=== PATIENT | female | born 1950 | race Caucasian/White ===

== ENCOUNTER 2016-07-17 23:54 | Emergency (ER) | payer MEDICARE, OTHER ==
[~2016-07-17] VITALS: Ht 157.5 cm; Wt 87.3 kg
[~2016-07-17 23:54] MED LIST: ALPRAZOLAM0.5 MG PO; BUPR-97 PO; CITA20TA PO; GLUC-125 PO; METO25T PO; [UNRECOGNIZED DRUG - CODE] PO
[2016-07-18 00:05] VITALS: BP 147/91; RESP 18; O2SAT 94
--- NOTE | 2016-07-18 00:57 | ED.REPORT ---
HPI-Facial Injury Date of Service Jul 18, 2016 ED Provider: Walt Schumacher MD Patient is a 65 year old female who presents to the ED with a nasal laceration after a ground level fall this evening. The patient states that she slipped and fell onto her face. Patient admits to drinking wine this evening, as her mother- in-law today. She is not on any blood thinning medications and bleeding is well controlled on arrival to the ED. Patient denies loss of consciousness, neck pain, or sustaining any other injuries. Nursing Notes Stated Complaint: NOSE BLEED Chief Complaint: ENT & Mouth Nursing Notes Reviewed: Yes Allergies: Coded Allergies: propoxyphene HCl (Verified Allergy, Unknown, 07/18/16) Scheduled Alprazolam-Expunged Drug, Do Not Renew! (Alprazolam-Expunged Drug, Do Not Renew! ) 0.5 Mg Tablet 0.5 MG PO PRN Bupropion-Expunged Drug, Do Not Renew! (Bupropion XL-Expunged Drug, Do Not Renew !) 150 Mg Tab.sr.24h 150 MG PO DAILY Citalopram-Expunged Drug, Do Not Renew! (Citalopram-Expunged Drug, Do Not Renew! ) 20 Mg Tablet 20 MG PO DAILY Metoprolol Tart-Expunged Drug, Do Not Renew! (Metoprolol Tart-Expunged Drug, Do Not Renew!) 25 Mg Tablet 25 MG PO BID Miscellaneous Medications Calcium Citrate/Vitamin D3 ([facility] Calcium Citrate +Vit D3 Tb) 1 Each Tablet 1 EACH PO Gluc/Zenon-Msm#3/Niranjan/Bosw/Bor (Glucosamine Chondroitin Sftgl) 1 Each Capsule EACH PO General Time Seen by Provider: 01:00 Chief Complaint Other (nasal laceration) Hx Obtained From: Patient Arrived By: Walk-in Onset Occurred: Just prior to arrival Symptom Duration: Since onset Caused by: Fall Context: Occurred at: Home Location: : Nose Quality: Painful Severity: Current: Mild Severity: Maximum: Moderate Recent Healthcare: No recent doctor visit, No recent hospitalization Similar Sx Previous: No Past Medical History Past Medical History arthritis duodenal ulcer Reports: Hypertension Reports: Depression Past Surgical History hand surgery Smoking History Current Every Day Smoker Social History Alcohol Use: 1-3 per day Other Social History: Good social support, Local resident Ambulatory Status Independent Review of Systems Musculoskeletal: Denies: Extremity pain, Neck pain Neurologic: Denies: Change LOC, Headache Complete sys rev & neg: except as marked. Hematologic: Reports Bleeding, Denies Bruising Physical Exam Initial Vital Signs Vital Signs (First) Date Time Temp Pulse Resp B/P Pulse Ox O2 Delivery O2 Flow Rate FiO2 07/18/16 00:05 36.0 107 18 147/91 94 Room Air Initial VS: Reviewed Extremities: Vascular intact, Neuro intact, No swelling, No tenderness Skin: Warm, Dry, No cyanosis Psychiatric: Mood/affect normal, Behavior normal, Normal thought content Head / Eyes: Normocephalic, PERRL, EOMI ENT: Airway patent Linear 1.5cm laceration to the bridge of the nose. Central portion down to Sub Q tissue (5mm), the rest is superficial. Neck: Supple Neurologic: Oriented X3, Speech NL, No motor deficits, No sensory deficits, CN II - XII intact General/Constitutional: Awake, Alert, No acute distress Respiratory / Chest: No respiratory distress, No stridor Cardiovascular: Heart rate NL, Cap refill not delayed, Peripheral circulation NL Procedures Laceration Management Time: 01:35 Procedure Performed by: ED physician Consent / Setup / Site Prep: Consent from patient, Time-out performed, Hand hygiene observed, Stand sterile technique Location of Wound: nasal bridge Wound Length: 1 cm (1.5cm) Wound Preparation: Shurclens Debridement: None Irrigation: 50 cc Foreign Body Explore / Removal: Explored for foreign body Repair Skin: Dermabond Closure Layers: 1 Post-Procedure / Complications: No complications, Condition improved, Tolerated procedure well, Patient stable Re-Eval/Medical Decision Med Decision/Clinical Course Med Decision/Clinical Course: 65-year-old with a slip and fall incident resulting in a small laceration on her nose. This was repaired with skin glue and Steri-Strips. There is good approximation and good hemostasis after repair. Discharged in stable condition for follow-up with PCP. Source of Hx: Old records Re-Evaluation/Progress : Time of Eval: 01:54 Patient Status: Condition improved Re-Evaluation/Progress Note: Patient is improved after lac repair. Patient understands and agrees with the plan to be discharged home. Discharge instructions and follow-up discussed. All questions were addressed. Return to the ED warnings given. Counseled Regarding: Diagnosis, Need for follow-up, When/why to return to ED Discharge & Departure Impression: Primary Impression: Laceration of nose Encounter type: initial encounter Qualified Code: S01.21XA - Laceration without foreign body of nose, initial encounter Additional Impression: Fall from ground level Disposition: Home Discharge Condition All VS Reviewed: Yes Condition: Stable Patient Instructions: Laceration (ED) Additional Instructions: Do not apply any ointments to the wound. Leave the Steri-Strips dry and clean as best as possible. Leave them on his long as they will stay. Three or four days is usually adequate. Follow-up with your doctor in the office. Return here if any indication of infection. Referrals: Valentin Rangel MD (PCP) Scribe Attestation Portions of this note were transcribed by Seema Millard. I, Dr. Schumacher personally performed the history, physical exam and medical decision-making; I reviewed and confirmed the accuracy of the information in the transcribed note. Signed by: Kandis Ann, 07/18/2016 0219 copies to: Valentin Rangel MD, Christopher W MD Jul 18, 2016 00:57 Seema Millard Jul 18, 2016 01:04
[2016-07-18] MEDS ORDERED: Tissue Adhesive Liq (CS Supplied) TOPICAL ONE (01:10)
[2016-07-18 01:59] VITALS: BP 147/91; PULSE 107; RESP 18; O2SAT 94
== END 2016-07-18 02:01 | disposition home or self-care (01) ==
LOC: SED 23:54
DX: S01.21XA Laceration without foreign body of nose, initial encounter (principal); W01.198A Fall on same level from slipping, tripping and stumbling with subsequent striking against other object, initial encounter; Y93.89 Activity, other specified; Y92.89 Other specified places as the place of occurrence of the external cause; Y99.8 Other external cause status; I10 Essential (primary) hypertension; F17.200 Nicotine dependence, unspecified, uncomplicated; Z88.8 Allergy status to other drugs, medicaments and biological substances